=== PATIENT | female | born 1970 | race Caucasian/White ===

== ENCOUNTER 2017-09-25 13:09 | Day surgery (SDC) | payer OTHER, BC ==
[~2017-09-25] VITALS: Ht 162.6 cm; Wt 54.0 kg
[~2017-09-25 13:09] MED LIST: ASPIRIN 81M81 MG/TA2 PO; CENA K20 MEQ/15 PO; CYANOCOBAL100 MCG/ML IM; EFFEXOR 75M75 MG/TAB PO; IMITREX 25MG TA25 MG PO; LAMICTAL150 MG PO; MSIR PO; REQUIP 0.5MG0.5 MG PO; VITAMIN D1000 IU PO; ZOFRAN8 MG PO; ZOLOFT 100MG100 MG PO; [UNRECOGNIZED DRUG - CODE] TP
[2017-09-25 13:37] VITALS: BP 111/59; PULSE 69; TEMP 98.4
[2017-09-25] MEDS ORDERED: NEURONTIN400 MG/CAP PO (14:06)
[2017-09-25] MEDS ORDERED: CLARITIN 1010 MG/TAB PO (14:07)
[2017-09-25] MEDS ORDERED: PROZAC 20MG20 MG PO (14:07)
[2017-09-25] MEDS ORDERED: ROBAXIN 50500 MG/TAB PO (14:08)
[2017-09-25] MEDS ORDERED: ROXICODONE 55 MG/TAB PO (14:08)
[2017-09-25] MEDS ORDERED: DESYREL 100MG100 MG PO (14:09)
[2017-09-25] MEDS ORDERED: MORPHINE 1515 MG/TAB PO (14:10)
[2017-09-25] MEDS ORDERED: PRAVACHOL 20MG20 MG PO (14:11)
[2017-09-25] MEDS ORDERED: WELLBUTRIN 75MG75 MG PO (14:12)
[2017-09-25] MEDS ORDERED: REQUIP 1MG T1 MG/TAB PO (14:12)
[2017-09-25] MEDS ORDERED: FLONASE SENSIM9.9 ML NS (14:13)
[2017-09-25] MEDS ORDERED: ZEMBRACE S3 MG/0.5 M SQ (14:13)
[2017-09-25] MEDS ORDERED: PEPTAMEN PO (14:15)
[2017-09-25 15:55] VITALS: BP 111/59; PULSE 77; TEMP 98.8
[2017-09-25] MEDS ORDERED: PRIL40 PO (16:08)
[2017-09-25] MEDS ORDERED: CARAFATE S1 GM/10 ML PO (16:08)
[2017-09-25 16:10] VITALS: BP 105/56; PULSE 70
== END 2017-09-25 18:25 | disposition home or self-care (01) ==
LOC: SDCO 13:09
DX: K22.10 Ulcer of esophagus without bleeding (principal); K22.8 Other specified diseases of esophagus; K30 Functional dyspepsia; Q79.6 Ehlers-Danlos syndromes; K58.9 Irritable bowel syndrome, unspecified
CPT/HCPCS: J2704